=== PATIENT | male | born 1945 | race Caucasian/White ===

== ENCOUNTER 2017-07-08 07:02 | Day surgery (SDC) | payer OTHER ==
[~2017-07-08] VITALS: Ht 170.2 cm; Wt 60.8 kg
[~2017-07-08 07:02] MED LIST: CENTRUM SILVER1 EAC2 PO; CHOL10002 PO; GABA300 PO; OXYC5 PO; Prilosec10 M1 PO; ZESTORETIC 20-121 EA PO
== END 2017-07-08 22:50 | disposition home or self-care (01) ==
LOC: ORSCMMR 07:02 → ORD 08:45 → ORSCMMR 22:50
PROVIDERS: Surgery
PROC: B5161ZA Fluoroscopy of Right Subclavian Vein using Low Osmolar Contrast, Guidance (ICD-10-PCS; principal; 2017-07-08 10:15)
PROC: 05H533Z Insertion of Infusion Device into Right Subclavian Vein, Percutaneous Approach (ICD-10-PCS; principal; 2017-07-08 10:15)
DX: C64.2 Malignant neoplasm of left kidney, except renal pelvis (principal); I10 Essential (primary) hypertension; Z79.899 Other long term (current) drug therapy; F17.210 Nicotine dependence, cigarettes, uncomplicated
CPT/HCPCS: 77001; C1788; J0690; J1642; J2250; J3010; J7120

== ENCOUNTER 2017-10-22 00:15 | Day surgery (SDC) | payer OTHER ==
[~2017-10-22] VITALS: Ht 168.9 cm; Wt 61.2 kg
[2017-10-22] MEDS ORDERED: LOPE2C PO (08:31)
[2017-10-22] MEDS ORDERED: Prinivil10 MG PO (08:32)
[2017-10-22] MEDS ORDERED: OPDIVO240 MG/24 IV (08:33)
[2017-10-22] MEDS ORDERED: Prilosec Otc20 MG PO (08:34)
[2017-10-22] MEDS ORDERED: VANCO 1 GR1 GM/250 M IV (08:35)
== END 2017-10-22 09:20 | disposition home or self-care (01) ==
LOC: ATC 00:15
DX: M86.9 Osteomyelitis, unspecified (principal); I12.9 Hypertensive chronic kidney disease with stage 1 through stage 4 chronic kidney disease, or unspecified chronic kidney disease; N18.3 Chronic kidney disease, stage 3 (moderate); J43.9 Emphysema, unspecified; F17.210 Nicotine dependence, cigarettes, uncomplicated
CPT/HCPCS: 82565; J1642; J3370; J7050

== ENCOUNTER 2017-10-23 00:04 | Day surgery (SDC) | payer OTHER ==
[~2017-10-23 00:04] MED LIST changes: +LOPE2C PO; +OPDIVO240 MG/24 IV; +Prilosec Otc20 MG PO; +Prinivil10 MG PO; +VANCO 1 GR1 GM/250 M IV
== END 2017-10-23 09:10 | disposition home or self-care (01) ==
LOC: ATC 00:04
DX: M86.9 Osteomyelitis, unspecified (principal); I12.9 Hypertensive chronic kidney disease with stage 1 through stage 4 chronic kidney disease, or unspecified chronic kidney disease; N18.3 Chronic kidney disease, stage 3 (moderate); F17.210 Nicotine dependence, cigarettes, uncomplicated
CPT/HCPCS: 96365; J1642; J3370

== ENCOUNTER 2017-10-24 00:02 | Day surgery (SDC) | payer OTHER ==
[~2017-10-24] VITALS: Ht 168.9 cm; Wt 60.5 kg
[2017-10-24 08:47] LABS: Creatinine, Blood 1.16 mg/dL (0.60-1.20); Vancomycin, Trough 9.1 ug/mL (5.0-10.0)
== END 2017-10-24 10:37 | disposition home or self-care (01) ==
LOC: ATC 00:02
PROVIDERS: Family Medicine
DX: M86.9 Osteomyelitis, unspecified (principal); I12.9 Hypertensive chronic kidney disease with stage 1 through stage 4 chronic kidney disease, or unspecified chronic kidney disease; N18.3 Chronic kidney disease, stage 3 (moderate)
CPT/HCPCS: 80202; 82565; J1642; J2997; J3370

== ENCOUNTER 2017-10-27 00:17 | Day surgery (SDC) | payer OTHER ==
[2017-10-27 08:08] LABS: Creatinine, Blood 1.11 mg/dL (0.60-1.20); Vancomycin, Trough 15.6 ug/mL (5.0-10.0)
== END 2017-10-27 10:00 | disposition home or self-care (01) ==
LOC: ATC 00:17
PROVIDERS: Family Medicine
DX: M86.9 Osteomyelitis, unspecified (principal); I12.9 Hypertensive chronic kidney disease with stage 1 through stage 4 chronic kidney disease, or unspecified chronic kidney disease; N18.3 Chronic kidney disease, stage 3 (moderate)
CPT/HCPCS: 80202; 82565; 96365; J1642; J3370

== ENCOUNTER 2017-10-28 00:37 | Day surgery (SDC) | payer OTHER | END 2017-10-28 09:32 | disposition home or self-care (01) | LOC: ATC 00:37 | DX: M86.9 Osteomyelitis, unspecified (principal); I12.9 Hypertensive chronic kidney disease with stage 1 through stage 4 chronic kidney disease, or unspecified chronic kidney disease; N18.3 Chronic kidney disease, stage 3 (moderate) | CPT/HCPCS: 96365; J1642; J3370 ==

== ENCOUNTER 2017-11-15 07:10 | Day surgery (SDC) | payer OTHER | END 2017-11-15 17:43 | disposition home or self-care (01) | LOC: ATC 07:10 | DX: M86.9 Osteomyelitis, unspecified (principal); I12.9 Hypertensive chronic kidney disease with stage 1 through stage 4 chronic kidney disease, or unspecified chronic kidney disease; N18.3 Chronic kidney disease, stage 3 (moderate); F17.210 Nicotine dependence, cigarettes, uncomplicated | CPT/HCPCS: 96365; J1642; J3370; J7050 ==

== ENCOUNTER 2017-11-18 00:48 | Day surgery (SDC) | payer OTHER | END 2017-11-18 09:15 | disposition home or self-care (01) | LOC: ATC 00:48 | DX: M86.9 Osteomyelitis, unspecified (principal); I12.9 Hypertensive chronic kidney disease with stage 1 through stage 4 chronic kidney disease, or unspecified chronic kidney disease; N18.3 Chronic kidney disease, stage 3 (moderate) | CPT/HCPCS: 96365; J1642; J3370 ==

== ENCOUNTER 2017-11-20 07:38 | Day surgery (SDC) | payer OTHER ==
[2017-11-20 08:39] LABS: Creatinine, Blood 1.16 mg/dL (0.60-1.20); Vancomycin, Trough 15.1 ug/mL (5.0-10.0)
== END 2017-11-20 10:30 | disposition home or self-care (01) ==
LOC: ATC 07:38
PROVIDERS: Internal Medicine Hematology & Oncology
DX: M86.9 Osteomyelitis, unspecified (principal); I12.9 Hypertensive chronic kidney disease with stage 1 through stage 4 chronic kidney disease, or unspecified chronic kidney disease; N18.3 Chronic kidney disease, stage 3 (moderate); F17.210 Nicotine dependence, cigarettes, uncomplicated
CPT/HCPCS: 36415; 80202; 82565; 96365; 96366; J1642; J3370

== ENCOUNTER 2017-11-22 07:24 | Day surgery (SDC) | payer OTHER | END 2017-11-22 09:06 | disposition home or self-care (01) | LOC: ATC 07:24 | DX: M86.9 Osteomyelitis, unspecified (principal); I12.9 Hypertensive chronic kidney disease with stage 1 through stage 4 chronic kidney disease, or unspecified chronic kidney disease; N18.3 Chronic kidney disease, stage 3 (moderate); F17.210 Nicotine dependence, cigarettes, uncomplicated | CPT/HCPCS: J1642; J3370 ==

== ENCOUNTER 2017-11-23 07:26 | Day surgery (SDC) | payer OTHER | END 2017-11-23 08:53 | disposition home or self-care (01) | LOC: ATC 07:26 | DX: M86.9 Osteomyelitis, unspecified (principal); I12.9 Hypertensive chronic kidney disease with stage 1 through stage 4 chronic kidney disease, or unspecified chronic kidney disease; N18.3 Chronic kidney disease, stage 3 (moderate); F17.210 Nicotine dependence, cigarettes, uncomplicated | CPT/HCPCS: J1642; J3370 ==

== ENCOUNTER 2018-07-17 10:18 | Day surgery (SDC) | payer OTHER ==
[~2018-07-17] VITALS: Ht 170.2 cm; Wt 49.5 kg
[~2018-07-17 10:18] MED LIST changes: +AFINITOR5 MG PO; +AMLO5 PO; +Augmentin 875-1 EACH PO; +Ferus150 MG PO; +LENVIMA PO; +[UNRECOGNIZED DRUG - OTHER]
--- NOTE | 2018-07-17 10:57 | NUR ---
Ambulatory in Day Surgery Surgical site prepped with 2% Chlorhexidine cloth wipe. Patient confirms NPO status and agrees with scheduled surgery. Patient States Post-Procedure ride home has been arranged.
--- NOTE | 2018-07-17 11:40 | NUR ---
PATIENT GAVE PERMISSION FOR ME TO CARE FOR HIM TODAY 07/17/18
--- NOTE | 2018-07-17 13:50 | NUR ---
BRIGHT RED DRAINAGE TO DRESSING ON ABD. PT AWAKE AND PO FLUIDS PROVIDED. S/O AT BEDSIDE.
--- NOTE | 2018-07-17 14:10 | NUR ---
PT AMB TO BATHROOM WITH STAND BY ASSISTANCE. PTS S/O ASSISTED PT IN BATHROON AND THNE THEY AMB BACK TO BED. DRESSING TO ABD CHANGED AND DISCHARGE INSTRUCTIONS REVIEWED WITH PT AND S/O.
--- NOTE | 2018-07-17 14:38 | NUR ---
DRESSING DRY AND INTACT. Patient States Post-Procedure ride home has been arranged. Discharged via wheelchair to private car for ride home.
== END 2018-07-17 23:51 | disposition home or self-care (01) ==
LOC: ORSCMMR 10:18 → ORD 12:00 → ORSCMMR 23:51
PROVIDERS: Surgery
PROC: 0DH63UZ Insertion of Feeding Device into Stomach, Percutaneous Approach (ICD-10-PCS; principal; 2018-07-17 12:00)
DX: R63.4 Abnormal weight loss (principal); C64.2 Malignant neoplasm of left kidney, except renal pelvis; C77.1 Secondary and unspecified malignant neoplasm of intrathoracic lymph nodes; C79.70 Secondary malignant neoplasm of unspecified adrenal gland; M87.88 Other osteonecrosis, other site; M27.2 Inflammatory conditions of jaws; N18.3 Chronic kidney disease, stage 3 (moderate); Z79.899 Other long term (current) drug therapy
CPT/HCPCS: C1769; J0690; J2250; J2704; J7120

== ENCOUNTER → 2018-10-03 | Outpatient (CLI) | payer OTHER ==
[2018-10-03 12:04] LABS: Protein, Urine Quantitative 39.7 mg/dL (0.0-11.9)
[2018-10-03 12:07] LABS: Microalbumin, Urine Quant. 29.7 mg/L (0.000-20.000)
== END | disposition home or self-care (01) ==
LOC: LAB 05:30 → LAB SHORT 05:30
PROVIDERS: Internal Medicine Nephrology
DX: N18.3 Chronic kidney disease, stage 3 (moderate) (principal); D63.1 Anemia in chronic kidney disease; R73.09 Other abnormal glucose; R80.9 Proteinuria, unspecified
CPT/HCPCS: 81050; 82043; 82570; 84156

== ENCOUNTER → 2018-12-18 | Outpatient (CLI) | payer OTHER ==
[2018-12-24 11:07] LABS: M-SPIKE, % Not Observed % (Not Observed)
== END | disposition home or self-care (01) ==
LOC: LAB SHORT 06:00 → LAB 06:00
PROVIDERS: Internal Medicine Nephrology
DX: E55.9 Vitamin D deficiency, unspecified (principal); R94.6 Abnormal results of thyroid function studies; R94.5 Abnormal results of liver function studies; R76.9 Abnormal immunological finding in serum, unspecified; E78.00 Pure hypercholesterolemia, unspecified; N25.81 Secondary hyperparathyroidism of renal origin; R80.9 Proteinuria, unspecified; D63.1 Anemia in chronic kidney disease; N18.2 Chronic kidney disease, stage 2 (mild)
CPT/HCPCS: 81050; 84166; 86335

== ENCOUNTER 2019-04-12 08:28 | Day surgery (SDC) | payer OTHER | END 2019-04-12 22:44 | disposition home or self-care (01) | LOC: WOUND 08:28 | DX: L97.828 Non-pressure chronic ulcer of other part of left lower leg with other specified severity (principal); I12.9 Hypertensive chronic kidney disease with stage 1 through stage 4 chronic kidney disease, or unspecified chronic kidney disease; N18.3 Chronic kidney disease, stage 3 (moderate); C64.9 Malignant neoplasm of unspecified kidney, except renal pelvis; F17.210 Nicotine dependence, cigarettes, uncomplicated; Z79.899 Other long term (current) drug therapy | CPT/HCPCS: G0463 ==

== ENCOUNTER 2019-04-20 00:12 | Day surgery (SDC) | payer OTHER | END 2019-04-20 23:03 | disposition home or self-care (01) | LOC: WOUND 00:12 | DX: T81.89XA Other complications of procedures, not elsewhere classified, initial encounter (principal); I96 Gangrene, not elsewhere classified; L97.824 Non-pressure chronic ulcer of other part of left lower leg with necrosis of bone; I12.0 Hypertensive chronic kidney disease with stage 5 chronic kidney disease or end stage renal disease; N18.6 End stage renal disease; D63.1 Anemia in chronic kidney disease; F17.200 Nicotine dependence, unspecified, uncomplicated; C64.9 Malignant neoplasm of unspecified kidney, except renal pelvis; C79.9 Secondary malignant neoplasm of unspecified site; L97.828 Non-pressure chronic ulcer of other part of left lower leg with other specified severity; K74.60 Unspecified cirrhosis of liver; M27.2 Inflammatory conditions of jaws; Z79.899 Other long term (current) drug therapy; Y83.8 Other surgical procedures as the cause of abnormal reaction of the patient, or of later complication, without mention of misadventure at the time of the procedure ==

== ENCOUNTER 2019-04-27 00:15 | Day surgery (SDC) | payer OTHER | END 2019-04-27 22:48 | disposition home or self-care (01) | LOC: WOUND 00:15 | DX: T81.89XA Other complications of procedures, not elsewhere classified, initial encounter (principal); I96 Gangrene, not elsewhere classified; L97.822 Non-pressure chronic ulcer of other part of left lower leg with fat layer exposed; I12.0 Hypertensive chronic kidney disease with stage 5 chronic kidney disease or end stage renal disease; N18.6 End stage renal disease; D63.1 Anemia in chronic kidney disease; K74.60 Unspecified cirrhosis of liver; C64.9 Malignant neoplasm of unspecified kidney, except renal pelvis; C79.9 Secondary malignant neoplasm of unspecified site; F17.210 Nicotine dependence, cigarettes, uncomplicated; M27.2 Inflammatory conditions of jaws; Z79.899 Other long term (current) drug therapy; Y83.8 Other surgical procedures as the cause of abnormal reaction of the patient, or of later complication, without mention of misadventure at the time of the procedure ==

== ENCOUNTER 2019-04-29 00:16 | Day surgery (SDC) | payer OTHER ==
[2019-04-29 10:45] LABS: BASOPHILS ABSOLUTE AUTO 0.03 K/mm3 (0.00-0.23); BASOPHILS PERCENT AUTO 1 % (0-2); EOSINOPHILS ABSOLUTE AUTO 0.16 K/mm3 (0.00-0.68); EOSINOPHILS PERCENT AUTO 3 % (0-6); Hematocrit 37.9 % (37.0-53.0); Hemoglobin 11.7 g/dL (13.5-17.5); IMMATURE GRAN ABSOLUTE AUTO 0.01 K/mm3 (0.00-0.10); IMMATURE GRAN PERCENT AUTO 0 % (0-1); LYMPHOCYTES ABSOLUTE AUTO 1.62 K/mm3 (0.84-5.20); LYMPHOCYTES PERCENT AUTO 30 % (21-46); MONOCYTES ABSOLUTE AUTO 0.51 K/mm3 (0.16-1.47); MONOCYTES PERCENT AUTO 10 % (4-13); Mean Corpuscular HGB 30.4 pg (26.0-34.0); Mean Corpuscular HGB Conc 30.9 g/dL (31.5-36.5); Mean Corpuscular Volume 98 fL (80-100); Mean Platelet Volume 9.8 fL (9.1-12.4); NEUTROPHILS ABSOLUTE AUTO 3.05 K/mm3 (1.96-9.15); NEUTROPHILS PERCENT AUTO 57 % (41-73); Platelet Count 115 K/mm3 (150-400); RDW Coefficient Variation 13.9 % (11.7-14.2); RDW Standard Deviation 50.2 fL (35.1-46.3); Red Blood Cell Count 3.85 M/mm3 (4.30-5.90); White Blood Cell Count 5.38 K/mm3 (4.00-11.30)
[2019-04-29 11:23] LABS: Alanine Aminotransfer (ALT/SGP 21 U/L (12-78); Albumin, Blood 3.3 g/dL (3.4-5.0); Albumin/Globulin Ratio 0.8 (0.8-1.8); Alk Phos 151 U/L (50-136); Anion Gap 3 mmol/L (6-16); Aspartate Aminotrans (AST/SGOT 34 U/L (12-37); Bilirubin, Total 0.4 mg/dL (0.1-1.0); Blood Urea Nitrogen 19 mg/dL (8-24); Bun/Creatinine Ratio 17.6 (12.0-20.0); CO2, Blood 30 mmol/L (21-32); Calcium, Blood 9.4 mg/dL (8.5-10.1); Chloride, Blood 104 mmol/L (98-108); Creatinine, Blood 1.08 mg/dL (0.60-1.20); Globulin, Blood 4.4 g/dL (2.2-4.0); Glomerular Filtration Rate >60 (60-); Glucose, Blood 85 mg/dL (70-99); Potassium, Blood 3.9 mmol/L (3.5-5.5); Sodium, Blood 137 mmol/L (136-145); Total Protein, Blood 7.7 g/dL (6.4-8.2)
== END 2019-04-29 23:05 | disposition home or self-care (01) ==
LOC: WOUND 00:16
PROVIDERS: Internal Medicine Hematology & Oncology
DX: L97.828 Non-pressure chronic ulcer of other part of left lower leg with other specified severity (principal); I73.9 Peripheral vascular disease, unspecified; I12.9 Hypertensive chronic kidney disease with stage 1 through stage 4 chronic kidney disease, or unspecified chronic kidney disease; N18.3 Chronic kidney disease, stage 3 (moderate); C64.9 Malignant neoplasm of unspecified kidney, except renal pelvis; C79.9 Secondary malignant neoplasm of unspecified site; M27.2 Inflammatory conditions of jaws; F17.210 Nicotine dependence, cigarettes, uncomplicated; Z79.899 Other long term (current) drug therapy
CPT/HCPCS: 36415; 80053; 85025

== ENCOUNTER 2019-05-04 00:11 | Day surgery (SDC) | payer OTHER | END 2019-05-04 23:02 | disposition home or self-care (01) | LOC: WOUND 00:11 | DX: T81.89XA Other complications of procedures, not elsewhere classified, initial encounter (principal); L97.825 Non-pressure chronic ulcer of other part of left lower leg with muscle involvement without evidence of necrosis; I73.9 Peripheral vascular disease, unspecified; I12.9 Hypertensive chronic kidney disease with stage 1 through stage 4 chronic kidney disease, or unspecified chronic kidney disease; N18.3 Chronic kidney disease, stage 3 (moderate); C64.9 Malignant neoplasm of unspecified kidney, except renal pelvis; F17.210 Nicotine dependence, cigarettes, uncomplicated ==

== ENCOUNTER 2019-05-12 00:20 | Day surgery (SDC) | payer OTHER | END 2019-05-12 23:12 | disposition home or self-care (01) | LOC: WOUND 00:20 | DX: L97.828 Non-pressure chronic ulcer of other part of left lower leg with other specified severity (principal); I73.9 Peripheral vascular disease, unspecified; N18.3 Chronic kidney disease, stage 3 (moderate); F17.200 Nicotine dependence, unspecified, uncomplicated; Z79.899 Other long term (current) drug therapy ==

== ENCOUNTER 2019-05-18 00:11 | Day surgery (SDC) | payer OTHER | END 2019-05-18 23:02 | disposition home or self-care (01) | LOC: WOUND 00:11 | DX: L97.828 Non-pressure chronic ulcer of other part of left lower leg with other specified severity (principal); I73.9 Peripheral vascular disease, unspecified ==

== ENCOUNTER → 2019-05-25 | Day surgery (SDC) | payer OTHER | LOC: WOUND 00:14 | DX: L97.825 Non-pressure chronic ulcer of other part of left lower leg with muscle involvement without evidence of necrosis (principal); I12.9 Hypertensive chronic kidney disease with stage 1 through stage 4 chronic kidney disease, or unspecified chronic kidney disease; N18.3 Chronic kidney disease, stage 3 (moderate); I73.9 Peripheral vascular disease, unspecified; R60.0 Localized edema; F17.200 Nicotine dependence, unspecified, uncomplicated; Z79.899 Other long term (current) drug therapy ==

== ENCOUNTER 2019-06-01 02:04 | Day surgery (SDC) | payer OTHER | END 2019-06-01 03:33 | disposition home or self-care (01) | LOC: WOUND 02:04 | DX: L97.828 Non-pressure chronic ulcer of other part of left lower leg with other specified severity (principal); I73.9 Peripheral vascular disease, unspecified; I12.9 Hypertensive chronic kidney disease with stage 1 through stage 4 chronic kidney disease, or unspecified chronic kidney disease; N18.3 Chronic kidney disease, stage 3 (moderate) ==

== ENCOUNTER 2019-06-08 00:42 | Day surgery (SDC) | payer OTHER | END 2019-06-08 12:00 | disposition home or self-care (01) | LOC: WOUND 00:42 | DX: L97.828 Non-pressure chronic ulcer of other part of left lower leg with other specified severity (principal); I73.9 Peripheral vascular disease, unspecified; F17.200 Nicotine dependence, unspecified, uncomplicated; N18.3 Chronic kidney disease, stage 3 (moderate); Z79.899 Other long term (current) drug therapy ==

== ENCOUNTER 2019-06-15 00:13 | Day surgery (SDC) | payer OTHER | END 2019-06-15 22:53 | disposition home or self-care (01) | LOC: WOUND 00:13 | DX: T81.89XA Other complications of procedures, not elsewhere classified, initial encounter (principal); L97.828 Non-pressure chronic ulcer of other part of left lower leg with other specified severity; I12.9 Hypertensive chronic kidney disease with stage 1 through stage 4 chronic kidney disease, or unspecified chronic kidney disease; N18.3 Chronic kidney disease, stage 3 (moderate); I73.9 Peripheral vascular disease, unspecified; C64.9 Malignant neoplasm of unspecified kidney, except renal pelvis; F17.210 Nicotine dependence, cigarettes, uncomplicated; Y83.8 Other surgical procedures as the cause of abnormal reaction of the patient, or of later complication, without mention of misadventure at the time of the procedure ==

== ENCOUNTER 2019-06-23 00:14 | Day surgery (SDC) | payer OTHER | END 2019-06-23 23:16 | disposition home or self-care (01) | LOC: WOUND 00:14 | DX: L97.828 Non-pressure chronic ulcer of other part of left lower leg with other specified severity (principal); I73.9 Peripheral vascular disease, unspecified; R60.0 Localized edema; N18.3 Chronic kidney disease, stage 3 (moderate); F17.200 Nicotine dependence, unspecified, uncomplicated ==

== ENCOUNTER 2019-06-29 00:18 | Day surgery (SDC) | payer OTHER | END 2019-06-29 22:50 | disposition home or self-care (01) | LOC: WOUND 00:18 | DX: L97.828 Non-pressure chronic ulcer of other part of left lower leg with other specified severity (principal); I73.9 Peripheral vascular disease, unspecified; N18.3 Chronic kidney disease, stage 3 (moderate); F17.200 Nicotine dependence, unspecified, uncomplicated ==

== ENCOUNTER 2019-07-12 00:10 | Day surgery (SDC) | payer OTHER | END 2019-07-12 23:10 | disposition home or self-care (01) | LOC: WOUND 00:10 | DX: T81.89XA Other complications of procedures, not elsewhere classified, initial encounter (principal); L97.828 Non-pressure chronic ulcer of other part of left lower leg with other specified severity; I73.9 Peripheral vascular disease, unspecified; I12.0 Hypertensive chronic kidney disease with stage 5 chronic kidney disease or end stage renal disease; N18.6 End stage renal disease; F17.200 Nicotine dependence, unspecified, uncomplicated; Y83.8 Other surgical procedures as the cause of abnormal reaction of the patient, or of later complication, without mention of misadventure at the time of the procedure ==

== ENCOUNTER 2019-07-27 00:21 | Day surgery (SDC) | payer OTHER | END 2019-07-27 22:55 | disposition home or self-care (01) | LOC: WOUND 00:21 | DX: L97.828 Non-pressure chronic ulcer of other part of left lower leg with other specified severity (principal); I73.9 Peripheral vascular disease, unspecified; I12.9 Hypertensive chronic kidney disease with stage 1 through stage 4 chronic kidney disease, or unspecified chronic kidney disease; N18.3 Chronic kidney disease, stage 3 (moderate); F17.210 Nicotine dependence, cigarettes, uncomplicated ==

== ENCOUNTER 2019-08-03 00:28 | Day surgery (SDC) | payer OTHER | END 2019-08-03 22:39 | disposition home or self-care (01) | LOC: WOUND 00:28 | DX: T81.89XA Other complications of procedures, not elsewhere classified, initial encounter (principal); L97.828 Non-pressure chronic ulcer of other part of left lower leg with other specified severity; R60.0 Localized edema; I73.9 Peripheral vascular disease, unspecified; I12.9 Hypertensive chronic kidney disease with stage 1 through stage 4 chronic kidney disease, or unspecified chronic kidney disease; N18.3 Chronic kidney disease, stage 3 (moderate); C64.9 Malignant neoplasm of unspecified kidney, except renal pelvis; F17.200 Nicotine dependence, unspecified, uncomplicated; Y83.8 Other surgical procedures as the cause of abnormal reaction of the patient, or of later complication, without mention of misadventure at the time of the procedure ==

== ENCOUNTER 2019-08-10 00:11 | Day surgery (SDC) | payer OTHER ==
[~2019-08-10 00:11] MED LIST changes: -AFINITOR5 MG PO; -AMLODIPINE BES2.5 MG PO; -Augmentin 875-1 EACH PO; -Culturelle1 CAP PO; -Kaopectate240 MG; -LENVIMA PO; -LISI5 PO; -MIRALAX17 GM PO; -OXYC5 PO; -PANT40 PO; -Prilosec Otc20 MG PO
[2019-08-10] MEDS ORDERED: AMLODIPINE BES2.5 MG PO (22:51)
[2019-08-10] MEDS ORDERED: LISI5 PO (22:51)
[2019-08-10] MEDS ORDERED: Augmentin 875-1 EACH PO (23:00)
[2019-08-10] MEDS ORDERED: OXYC5 PO (23:01)
[2019-08-10] MEDS ORDERED: Prilosec Otc20 MG PO (23:02)
[2019-08-10] MEDS ORDERED: LENVIMA PO (23:04)
[2019-08-10] MEDS ORDERED: AFINITOR5 MG PO (23:04)
[2019-08-11] MEDS ORDERED: Culturelle1 CAP PO (00:45)
[2019-08-11] MEDS ORDERED: LOPE2C PO (00:45)
[2019-08-11] MEDS ORDERED: Kaopectate240 MG (00:47)
[2019-08-13] MEDS ORDERED: MIRALAX17 GM PO (16:01)
[2019-08-13] MEDS ORDERED: PANT40 PO (16:23)
== END 2019-08-10 22:38 | disposition home or self-care (01) ==
LOC: WOUND
DX: L97.828 Non-pressure chronic ulcer of other part of left lower leg with other specified severity (principal); I73.9 Peripheral vascular disease, unspecified; I12.9 Hypertensive chronic kidney disease with stage 1 through stage 4 chronic kidney disease, or unspecified chronic kidney disease; N18.3 Chronic kidney disease, stage 3 (moderate); Z87.891 Personal history of nicotine dependence; Z79.899 Other long term (current) drug therapy
CPT/HCPCS: G0463

== ENCOUNTER 2019-08-10 21:36 | Inpatient (IN) | payer OTHER ==
[~2019-08-10] VITALS: Ht 170.2 cm; Wt 43.8 kg
[2019-08-10 21:59] LABS: BASOPHILS ABSOLUTE AUTO 0.01 K/mm3 (0.00-0.23); BASOPHILS PERCENT AUTO 0 % (0-2); EOSINOPHILS ABSOLUTE AUTO 0.11 K/mm3 (0.00-0.68); EOSINOPHILS PERCENT AUTO 2 % (0-6); Hematocrit 35.5 % (37.0-53.0); Hemoglobin 11.4 g/dL (13.5-17.5); IMMATURE GRAN ABSOLUTE AUTO 0.01 K/mm3 (0.00-0.10); IMMATURE GRAN PERCENT AUTO 0 % (0-1); LYMPHOCYTES ABSOLUTE AUTO 1.92 K/mm3 (0.84-5.20); LYMPHOCYTES PERCENT AUTO 32 % (21-46); MONOCYTES PERCENT AUTO 14 % (4-13); Mean Corpuscular HGB 30.8 pg (26.0-34.0); Mean Corpuscular HGB Conc 32.1 g/dL (31.5-36.5); Mean Corpuscular Volume 96 fL (80-100); Mean Platelet Volume 10.4 fL (9.1-12.4); NEUTROPHILS ABSOLUTE AUTO 3.08 K/mm3 (1.96-9.15); NEUTROPHILS PERCENT AUTO 52 % (41-73); Platelet Count 137 K/mm3 (150-400); RDW Coefficient Variation 14.2 % (11.7-14.2); White Blood Cell Count 5.93 K/mm3 (4.00-11.30)
[2019-08-10 22:22] LABS: Lactate Dehydrogenase (Ld),Bld 175 U/L (100-240); Magnesium, Blood 2.5 mg/dL (1.6-2.4); Troponin I <0.015 ng/mL (0.000-0.040); Uric Acid, Blood 5.7 mg/dL (3.5-7.2)
[2019-08-10 22:24] LABS: Alanine Aminotransfer (ALT/SGP 22 U/L (12-78); Albumin, Blood 3.2 g/dL (3.4-5.0); Albumin/Globulin Ratio 0.7 (0.8-1.8); Alk Phos 139 U/L (50-136); Anion Gap 8 mmol/L (6-16); Aspartate Aminotrans (AST/SGOT 23 U/L (12-37); Bilirubin, Total 0.3 mg/dL (0.1-1.0); Blood Urea Nitrogen 74 mg/dL (8-24); Bun/Creatinine Ratio 22.4 (12.0-20.0); CO2, Blood 16 mmol/L (21-32); Calcium, Blood 9.5 mg/dL (8.5-10.1); Chloride, Blood 113 mmol/L (98-108); Creatinine, Blood 3.31 mg/dL (0.60-1.20); Globulin, Blood 4.6 g/dL (2.2-4.0); Glomerular Filtration Rate 19 (60-); Glucose, Blood 120 mg/dL (70-99); Phosphorus, Blood 6.8 mg/dL (2.5-4.9); Potassium, Blood 6.1 mmol/L (3.5-5.5); Sodium, Blood 137 mmol/L (136-145); Total Protein, Blood 7.8 g/dL (6.4-8.2)
[2019-08-10] MEDS ORDERED: AMLODIPINE BES2.5 MG PO (22:51)
[2019-08-10] MEDS ORDERED: LISI5 PO ×2 (22:51)
[2019-08-10 22:55] LABS: Creatine Kinase MB 1.5 ng/mL (0.0-3.6); Creatine Kinase MB Index 3.5 (0.0-4.0)
[2019-08-10] MEDS ORDERED: Augmentin 875-1 EACH PO (23:00)
[2019-08-10] MEDS ORDERED: OXYC5 PO ×2 (23:01)
[2019-08-10] MEDS ORDERED: Prilosec Otc20 MG PO ×2 (23:02)
[2019-08-10] MEDS ORDERED: AFINITOR5 MG PO ×2 (23:04)
[2019-08-10] MEDS ORDERED: LENVIMA PO ×2 (23:04)
[2019-08-11] MEDS ORDERED: LOPE2C PO ×2 (00:45)
[2019-08-11] MEDS ORDERED: Culturelle1 CAP PO ×2 (00:45)
[2019-08-11] MEDS ORDERED: Kaopectate240 MG ×2 (00:47)
--- NOTE | 2019-08-11 01:00 | NUR ---
PT TO ICU 12 FROM ED AT 0040. PT ABLE TO STAND AND TRANSFER TO ICU BED WITH STANDBY ASSIST. PT REPORTS BILATERAL LOWER EXTREMETY WEAKNESS PROGRESSING OVER THE LAST 3 MONTHS. PT REPORTS DIARRHEA FOR 3 MONTHS DESPITE TAKING DAILY ANTI-DIARRHEA MEDICATIONS. PT REPORTEDLY LOST OVER 20 LBS IN THE PAST 3 MONTHS D/T DECREASED APPETITE. PT HAS HYPERACTIVE BOWEL TONES IN ALL 4 QUADRANTS. GI PANEL/GUAIC TEST ORDERED R/O GI BLEED AND C-DIFF. PT PLACED IN CONTACT PRECAUTIONS UNTIL C-DIF RESULTS RECEIVED. PT HAS HX OF METASTATIC RENAL CANCER (BONE, KIDNEYS, LUNGS) PT'S SATS 100% ON RA, LUNG SOUNDS DIM T/O. PT HAS NO TEETH AND RECENTLY UNDERWENT BONE GRAFT FROM LEFT LOWER LEG TO MANDIBLE. PT REPORTS NO DIFFICULTY SWALLOWING AND IS ABLE TO "GUM" MOST FOODS. ENCOURAGED PT TO SPEAK WITH STAFF IF HE NEEDS DIFFERENT MEAL ACCOMODATIONS. PER PT HE HAS NOT URINATED SINCE TUESDAY 08/08, PER DR. TRIVEDI PT URINATED SMALL AMOUNT 08/09. BLADDER SCAN SHOWS URINE OF 176. PT REPORTS THAT HE DRINKS 3-4 16-OZ GLASSES OF WATER/DAILY. 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 PT'S SKIN IS ECCHYMOTIC WITH SCATTERED SCABS. LARGE SCAB TO TOP OF HEAD, PT REPORTS THAT 5 MONTHS AGO HE "HIT HEAD WHILE FEEDING DOG" AND THAT IT HAS BEEN SLOW TO HEAL. LARGE OPEN WOUND TO LEFT LOWER LEG, PT REPORTS THIS WAS FROM "BONE GRAFT". MEPILEX WITH XEROFORM IN PLACE (SEE PICTS). PT REPORTEDLY HAS ORDERS FROM [facility] DOCTOR FOR DAILY DRESSING CHANGES FOR WHICH HE GOES TO THE [facility]. REDDENED COCCYX WITH OPEN SKIN TEAR/PRESSURE ULCER (SEE PICTS). PT REPORTS THAT HE HAS BEEN "PUTTING NEOSPORIN ON IT". PT CURRENTLY UNDER THE CARE OF DR. HAYDEN AND [facility]. PT TAKING 2 DAILY CHEMOTHERAPY MEDICATIONS. RIGHT UPPER CHEST POWER PORT ACCESSED IN ED. NS 100 ML/HR INFUSING. SEE FULL ADMISSION ASSESSMENT
[2019-08-11 03:34] LABS: BASOPHILS ABSOLUTE AUTO 0.02 K/mm3 (0.00-0.23); BASOPHILS PERCENT AUTO 0 % (0-2); EOSINOPHILS ABSOLUTE AUTO 0.15 K/mm3 (0.00-0.68); EOSINOPHILS PERCENT AUTO 3 % (0-6); Hematocrit 31.1 % (37.0-53.0); IMMATURE GRAN ABSOLUTE AUTO 0.01 K/mm3 (0.00-0.10); IMMATURE GRAN PERCENT AUTO 0 % (0-1); LYMPHOCYTES ABSOLUTE AUTO 0.95 K/mm3 (0.84-5.20); LYMPHOCYTES PERCENT AUTO 17 % (21-46); MONOCYTES ABSOLUTE AUTO 0.78 K/mm3 (0.16-1.47); MONOCYTES PERCENT AUTO 14 % (4-13); Mean Corpuscular HGB 30.9 pg (26.0-34.0); Mean Corpuscular HGB Conc 32.2 g/dL (31.5-36.5); Mean Corpuscular Volume 96 fL (80-100); Mean Platelet Volume 10.4 fL (9.1-12.4); NEUTROPHILS ABSOLUTE AUTO 3.86 K/mm3 (1.96-9.15); NEUTROPHILS PERCENT AUTO 67 % (41-73); Platelet Count 119 K/mm3 (150-400); Red Blood Cell Count 3.24 M/mm3 (4.30-5.90); White Blood Cell Count 5.77 K/mm3 (4.00-11.30)
[2019-08-11 03:48] LABS: Bun/Creatinine Ratio 23.5 (12.0-20.0); Calcium, Blood 9.2 mg/dL (8.5-10.1); Creatinine, Blood 2.94 mg/dL (0.60-1.20); Potassium, Blood 5.9 mmol/L (3.5-5.5)
--- NOTE | 2019-08-11 06:09 | NUR ---
SHIFT SUMMARY NO ACUTE CHANGES SINCE ADMISSION. PT HAS SLEPT WELL, DENIES NEEDS. PT OUT OF BED TO BEDSIDE COMMODE WITH 1-PERSON ASSIST WITH [address] REINA CALLED WITH MORNING LAB RESULTS, WILL BE IN TO SEE PATIENT THIS MORNING. WILL REPORT TO DAYSHIFT NURSE.
--- NOTE | 2019-08-11 06:41 | NUR ---
DR. REINA TO IN TO SEE PATIENT, ORDER TO D/C NS AND START D5W WITH 3 AMPS BICARB AT 75 ML/HR.
[2019-08-11 08:13] LABS: Source, Urine Clean Catch
[2019-08-11 08:21] LABS: Bilirubin, Urine Neg (Neg); Blood, Urine Neg (Neg); Glucose Qualitative, Urine Neg (Neg); Ketones, Urine Neg (Neg); Leukocyte Esterase, Urine Neg (Neg); Nitrite, Urine Neg (Neg); Protein, Urine 3+ (Neg); Urobilinogen, Urine NORM (Normal)
[2019-08-11 08:36] LABS: Appearance, Urine Clear (Clear); Color, Urine Yellow (P-Yellow)
[2019-08-11 08:38] LABS: Bacteria Rare /hpf; Red Blood Cells, Urine 0-2 /hpf (0-2); Squamous Epithelial Cells Rare /hpf (Few); White Blood Cells, Urine 0-2 /hpf (0-5)
--- NOTE | 2019-08-11 18:53 | NUR ---
SUMMARY Assumed care of pt at 0700. Bedside report received from Bulmaro SOLIS. Pt A&O x 4. On room air. SR per monitor. Pt up to chair for breakfast and remained in chair until after lunch. Pt used bedside commode three times but only had one bowel movement. Bowel movement loose and green. C-diff and guiac sample sent. Pt continent of bowel and bladder. Prefers to void urine into bedside commode. Pt tolerates in room activity well. Calls appropriately before getting out of bed. Dr Montano in to see pt. States plan for EGD tomorrow. Pt verbalizes understanding of diet restriction to ice chips and water at midnight and strict NPO in morning. No acute changes to shift assessment. WIll continue to closely montior until care handoff and bedside report with oncoming RN.
--- NOTE | 2019-08-11 19:00 | NUR ---
INITAL SHIFT ASSESSMENT PT IS IN BED SITTING UP ALERT AND ORIENTED. HE STATES HE HAS JAW PAIN AND WOULD LIKE TO HAVE HIS PAIN PILL WHEN ALLOWED. DENIES PAIN ANYWHERE ELSE AND STATES OVERALL HE JUST FEELS WEEK. REVIEWED CALL LIGHT WITH PT AND HE STATES HE WILL CALL BEFORE GETTING OOB FOR ANYTHING. VITALS ARE STABLE AT THIS TIME. ASSESSMENT IS OVERALL BENIGN. PT IS ON RA WITH NO SOB AT REST NOTED. IV FLUIDS RUNNING ORDERED SEE EMAR. FLUIDS ARE RUNNING INTO ACCESSED MEDIPORT. PT HAS HAD PAS STOCKING ON AND OFF T/O SHIFT. HE STATES HE WILL WEAR THEM WHEN HE IS READY FOR BED THIS EVENING. OVERALL PLESANT AND COOPERTIVE. WILL CON'T TO MONITOR PT T/O REMAINDER OF SHIFT. CALL LIGHT IN REACH AND BED IN LOW POSITION.
[2019-08-11 21:54] LABS: Adenovirus F 40/41 Not Detected (NOT DETECT); Astrovirus Not Detected (NOT DETECT); Campylobacter Sp Not Detected (NOT DETECT); Cryptosporidium Not Detected (NOT DETECT); Cyclospora Cayetanensis Not Detected (NOT DETECT); E. Coli O157 Not Detected (NOT DETECT); Entamoeba Histolytica Not Detected (NOT DETECT); Enteroaggregative E. coli-EAEC Not Detected (NOT DETECT); Enteropathogenic E. coli-EPEC Not Detected (NOT DETECT); Enterotoxigenic E. coli-ETEC Not Detected (NOT DETECT); Giardia Lamblia Not Detected (NOT DETECT); Norovirus GI/GII Not Detected (NOT DETECT); Plesiomonas Shigelloides Not Detected (NOT DETECT); Rotavirus A Not Detected (NOT DETECT); Salmonella Sp Not Detected (NOT DETECT); Shiga Toxin-prod E. coli-STEC Not Detected (NOT DETECT); Shigella/Enteroin E. coli-EIEC Not Detected (NOT DETECT); Vibrio Cholerae Not Detected (NOT DETECT); Vibrio Sp Not Detected (NOT DETECT); Yersinia Enterocolitica Not Detected (NOT DETECT)
[2019-08-11 21:55] LABS: Sapovirus Not Detected (NOT DETECT)
[2019-08-12 03:51] LABS: Hematocrit 27.7 % (37.0-53.0); Hemoglobin 9.1 g/dL (13.5-17.5)
[2019-08-12 04:10] LABS: Albumin, Blood 2.3 g/dL (3.4-5.0); Anion Gap 7 mmol/L (6-16); Blood Urea Nitrogen 54 mg/dL (8-24); Bun/Creatinine Ratio 22.2 (12.0-20.0); CO2, Blood 24 mmol/L (21-32); Calcium, Blood 8.2 mg/dL (8.5-10.1); Chloride, Blood 110 mmol/L (98-108); Creatinine, Blood 2.43 mg/dL (0.60-1.20); Glomerular Filtration Rate 28 (60-); Glucose, Blood 84 mg/dL (70-99); Phosphorus, Blood 4.5 mg/dL (2.5-4.9); Potassium, Blood 5.1 mmol/L (3.5-5.5); Sodium, Blood 141 mmol/L (136-145)
--- NOTE | 2019-08-12 05:45 | NUR ---
SHIFT SUMMARY PT CON'T TO BE STABLE WITH NO CHANGES FROM BASELINE. VITALS ARE STABLE. PT HAS NO COMPLAINTS THIS AM. HE CON'T TO BE ABLE TO STAND AND TRANSFER TO BSC WITH MINIMAL ASSISTANCE. LIQUID STOOL AND URINE INTO COMMODE WITH NO ISSUES. PT BACK IN BED ON THE PHONE RESTING. WILL CON'T TO MONITOR PT AND KEEP SAFE TILL REPORT TO ONCOMING RN. CALL LIGHT IN REACH AND BED IN LOW POSITION.
[2019-08-12 07:34] LABS: Stool Occult Blood Guaiac 1 Neg (Neg)
--- NOTE | 2019-08-12 09:00 | NUR ---
DR HAYDEN Called unit with regards to consultation. States this pt's acute conditions are not cancer related. States he will follow the pt's progress but will not be seeing the patient during this hospitalization.
--- NOTE | 2019-08-12 11:35 | NUR ---
PT IN ICU 12. History, Chart, Medications and Allergies reviewed before start of procedure. Lungs clear T/O to Auscultation. Patient confirms NPO status and agrees with scheduled surgery.
--- NOTE | 2019-08-12 14:37 | NUR ---
ICU SUMMARY Assumed care of pt at 0700. Bedside report received from Alie SOLIS. Pt A&O x 4. SpO2 90% or greater RA. SR per monitor. Pt verbalizes understanding of NPO and plan of care for remainder of day. Pt up to chair. Sat up in chair for about 3 hours before going back to bed, independently. Pt continent of bowel and urine. Pleasant and cooperative with care. EGD completed. Per Dr Montano, plans for colonoscopy tomorrow. Pt verbalizes understaning. Currently on clear liquid diet. Plans for pt to transfer to room 359 as pt is medical floor status without telemetry. Telephone report given to Fe SOLIS.
--- NOTE | 2019-08-12 15:30 | NUR ---
ARRIVES VIA W/C FROM ICU ABOUT 1520. ALERT, ORIENTED. LUNGS DIM TO CLEAR T/O. NO TELE. ON R.A. SPEAKS IN COMPLETE SENTENCES. AWARE OF COLONOSCOPY TOMORROW. ON CLEAR LIQUIDS. MEDIPORT RT C.W ASSESSED WITH NACL RUNNING AT 75ML/HR. AWARE OF NEED FOR GUIAC X 2 WITH HAT PLACED IN BATHROOM. HAS OWN MEDS IN BLACK BAG AND PLACED IN CHART DRAWER. DRINKING COFFEE. ORIENTED TO ROOM WITH OWN PHONE ON HADOOP APPLICATION DEVELOPER. DENIES PAIN AT THIS TIME. WCTM
--- NOTE | 2019-08-12 15:32 | NUR ---
TRANSFER Pt transferred to room 359 accompanied by Rosangela CASTILLO. Pt transferred to new room via wheelchair. Chart, medications, and belongings transferred with patient. LLE dressing changed by this RN.
--- NOTE | 2019-08-13 04:58 | NUR ---
INVOICING MACHINE OPERATOR SUMMARY PT AAOX4 AND PLEASANT. ONLY ABLE TO DRINK ROUGHLY 1300 ML OF INITIAL 2000 ML OF GOLYTELY BEFORE BED. PT STATED "IT'S MAKING ME NAUSEAS AND I CAN'T DRINK ANYMORE TONIGHT". PT TO START DRINKING NEXT 2000 ML AT 0600 TODAY. PT HAS HAD SEVERAL BM'S TONIGHT, VERY WATERY BUT STILL DARK IN COLOR AT THIS TIME. VSS, WILL CONTINUE TO MONITOR.
[2019-08-13 06:07] LABS: Hemoglobin 7.8 g/dL (13.5-17.5)
[2019-08-13 06:18] LABS: Albumin, Blood 2.3 g/dL (3.4-5.0); Anion Gap 8 mmol/L (6-16); Blood Urea Nitrogen 38 mg/dL (8-24); Bun/Creatinine Ratio 18.8 (12.0-20.0); CO2, Blood 20 mmol/L (21-32); Chloride, Blood 112 mmol/L (98-108); Creatinine, Blood 2.02 mg/dL (0.60-1.20); Glomerular Filtration Rate 34 (60-); Glucose, Blood 72 mg/dL (70-99); Magnesium, Blood 1.9 mg/dL (1.6-2.4); Phosphorus, Blood 3.1 mg/dL (2.5-4.9); Potassium, Blood 4.9 mmol/L (3.5-5.5); Sodium, Blood 140 mmol/L (136-145)
--- NOTE | 2019-08-13 11:00 | NUR ---
O.R. STAFF NOTIFIED STOOL LIQUID YELLOW. WILL BE HERE AROUND 1200 TO GET.
--- NOTE | 2019-08-13 12:29 | NUR ---
08/13/19 1229 Florentin Newsome History, Chart, Medications and Allergies reviewed before start of procedure.MONITOR INTACT WITH CONTINUOUS PULSE OXIMETRY AND INTERMITTENT BP.3-LEAD EKG REVIEWED WITH PHYSICIAN PRIOR TO START OF PROCEDURE.O2 VIA N/C INTACT THROUGHOUT SEDATION/PROCEDURE. Patient confirms NPO status and agrees with scheduled surgery.PATIENT DETERMINED TO BE ASA APPROPRIATE FOR PROPOFOL SEDATION PRIOR TO START OF PROCEDURE BY DR. COLLAZO.
[2019-08-13] MEDS ORDERED: MIRALAX17 GM PO ×2 (16:01)
[2019-08-13] MEDS ORDERED: PANT40 PO ×2 (16:23)
--- NOTE | 2019-08-13 16:46 | NUR ---
REVIEW D'C INSTRUCTIONS WITH PATIENT. AWARE HAS MEDS X 2 AT [facility]. AWARE HIS DOCTORS OFFICE WILL CALL FRIDAY TO SCHEDULE AN APPOINTMENT. REVIEW NEW MEDS. AWARE TO F/U W/. HAS F/U APPT WITH DR. HAYDEN NEXT WEEK. ANSWER ALL QUESTIONS. IN W/C TO POV
== END 2019-08-13 16:50 | disposition home or self-care (01) | DRG 682 ==
LOC: ER 21:36 → MEDS 23:54 → ICUW 23:54 → MEDS 08-12 15:20
PROVIDERS: Emergency Medicine; Internal Medicine Gastroenterology; Internal Medicine Nephrology; ADMIT Family Medicine
PROC: 0DB68ZX Excision of Stomach, Via Natural or Artificial Opening Endoscopic, Diagnostic (ICD-10-PCS; 2019-08-12)
PROC: 0DBA8ZX Excision of Jejunum, Via Natural or Artificial Opening Endoscopic, Diagnostic (ICD-10-PCS; 2019-08-12)
PROC: 0DB58ZX Excision of Esophagus, Via Natural or Artificial Opening Endoscopic, Diagnostic (ICD-10-PCS; 2019-08-12)
PROC: 0DB98ZX Excision of Duodenum, Via Natural or Artificial Opening Endoscopic, Diagnostic (ICD-10-PCS; principal; 2019-08-12 11:00)
PROC: 0DB78ZX Excision of Stomach, Pylorus, Via Natural or Artificial Opening Endoscopic, Diagnostic (ICD-10-PCS; 2019-08-12 11:00)
PROC: 0DBE8ZX Excision of Large Intestine, Via Natural or Artificial Opening Endoscopic, Diagnostic (ICD-10-PCS; 2019-08-13)
DX: N17.9 Acute kidney failure, unspecified (principal); K22.11 Ulcer of esophagus with bleeding; E43 Unspecified severe protein-calorie malnutrition; E87.2 Acidosis; C64.9 Malignant neoplasm of unspecified kidney, except renal pelvis; C78.02 Secondary malignant neoplasm of left lung; C78.01 Secondary malignant neoplasm of right lung; C79.51 Secondary malignant neoplasm of bone; Z68.1 Body mass index [BMI] 19.9 or less, adult; K63.5 Polyp of colon; K64.8 Other hemorrhoids; K57.30 Diverticulosis of large intestine without perforation or abscess without bleeding; E87.5 Hyperkalemia; E86.0 Dehydration; N18.9 Chronic kidney disease, unspecified; D63.1 Anemia in chronic kidney disease; K44.9 Diaphragmatic hernia without obstruction or gangrene; S81.802A Unspecified open wound, left lower leg, initial encounter; F17.210 Nicotine dependence, cigarettes, uncomplicated; I12.9 Hypertensive chronic kidney disease with stage 1 through stage 4 chronic kidney disease, or unspecified chronic kidney disease; E83.39 Other disorders of phosphorus metabolism; N25.81 Secondary hyperparathyroidism of renal origin; D69.59 Other secondary thrombocytopenia; Z79.899 Other long term (current) drug therapy; Z79.2 Long term (current) use of antibiotics; Z79.891 Long term (current) use of opiate analgesic
CPT/HCPCS: 0097U; 71045; 74150; 76770; 80048; 80053; 80069; 81001; 82272; 82374; 82550; 82553; 82947; 83615; 83735; 84100; 84132; 84484; 84550; 85014; 85018; 85025; 88305; 88342; 93005; 93010; 96361; 96374; 96375; 99285-25; A9270-GY; C9113; J0171; J0610; J0881; J1642; J1815; J2250; J2704; J7030; J7070; J7120

== ENCOUNTER → 2019-08-10 | Outpatient (CLI) | payer OTHER ==
[~2019-08-10] MED LIST changes: -AMLO5 PO; +AMLODIPINE BES2.5 MG PO; +Culturelle1 CAP PO; +Kaopectate240 MG; +LISI5 PO; +MIRALAX17 GM PO; +PANT40 PO
[2019-08-10 19:50] LABS: BASOPHILS ABSOLUTE AUTO 0.02 K/mm3 (0.00-0.23); BASOPHILS PERCENT AUTO 1 % (0-2); EOSINOPHILS ABSOLUTE AUTO 0.01 K/mm3 (0.00-0.68); EOSINOPHILS PERCENT AUTO 0 % (0-6); Hemoglobin 12.5 g/dL (13.5-17.5); IMMATURE GRAN ABSOLUTE AUTO 0.01 K/mm3 (0.00-0.10); IMMATURE GRAN PERCENT AUTO 0 % (0-1); LYMPHOCYTES ABSOLUTE AUTO 0.87 K/mm3 (0.84-5.20); LYMPHOCYTES PERCENT AUTO 21 % (21-46); MONOCYTES ABSOLUTE AUTO 0.41 K/mm3 (0.16-1.47); MONOCYTES PERCENT AUTO 10 % (4-13); Mean Corpuscular HGB 30.6 pg (26.0-34.0); Mean Corpuscular HGB Conc 31.3 g/dL (31.5-36.5); Mean Corpuscular Volume 98 fL (80-100); Mean Platelet Volume 11.7 fL (9.1-12.4); NEUTROPHILS ABSOLUTE AUTO 2.79 K/mm3 (1.96-9.15); NEUTROPHILS PERCENT AUTO 68 % (41-73); Platelet Count 151 K/mm3 (150-400); RDW Coefficient Variation 14.2 % (11.7-14.2); RDW Standard Deviation 51.3 fL (35.1-46.3); Red Blood Cell Count 4.08 M/mm3 (4.30-5.90); White Blood Cell Count 4.11 K/mm3 (4.00-11.30)
[2019-08-10 20:54] LABS: Albumin, Blood 3.5 g/dL (3.4-5.0); Albumin/Globulin Ratio 0.7 (0.8-1.8); Bilirubin, Total 0.4 mg/dL (0.1-1.0); Bun/Creatinine Ratio 22.2 (12.0-20.0); Calcium, Blood 10.3 mg/dL (8.5-10.1); Creatinine, Blood 3.2 mg/dL (0.60-1.20); Total Protein, Blood 8.5 g/dL (6.4-8.2)
[2019-08-10 21:03] LABS: Potassium, Blood 6.1 mmol/L (3.5-5.5)
== END | disposition home or self-care (01) ==
LOC: LAB 13:45 → LAB SHORT 13:45
PROVIDERS: Family Medicine
DX: R19.7 Diarrhea, unspecified (principal)
CPT/HCPCS: 80053; 85025

== ENCOUNTER 2019-08-19 09:25 | Emergency (ER) | payer OTHER ==
[~2019-08-19] VITALS: Ht 170.2 cm; Wt 45.4 kg
[~2019-08-19 09:25] MED LIST changes: +AFINITOR5 MG PO; +AMLODIPINE BES2.5 MG PO; +Augmentin 875-1 EACH PO; +Culturelle1 CAP PO; +Kaopectate240 MG; +LENVIMA PO; +LISI5 PO; +MIRALAX17 GM PO; +OXYC5 PO; +PANT40 PO; +Prilosec Otc20 MG PO
[2019-08-19 11:34] LABS: BASOPHILS ABSOLUTE AUTO 0.01 K/mm3 (0.00-0.23); BASOPHILS PERCENT AUTO 0 % (0-2); EOSINOPHILS ABSOLUTE AUTO 0.03 K/mm3 (0.00-0.68); EOSINOPHILS PERCENT AUTO 1 % (0-6); Hematocrit 39.8 % (37.0-53.0); Hemoglobin 12.9 g/dL (13.5-17.5); IMMATURE GRAN ABSOLUTE AUTO 0.02 K/mm3 (0.00-0.10); IMMATURE GRAN PERCENT AUTO 0 % (0-1); LYMPHOCYTES ABSOLUTE AUTO 0.74 K/mm3 (0.84-5.20); LYMPHOCYTES PERCENT AUTO 13 % (21-46); MONOCYTES PERCENT AUTO 9 % (4-13); Mean Corpuscular HGB 30.6 pg (26.0-34.0); Mean Corpuscular HGB Conc 32.4 g/dL (31.5-36.5); Mean Corpuscular Volume 95 fL (80-100); NEUTROPHILS ABSOLUTE AUTO 4.59 K/mm3 (1.96-9.15); NEUTROPHILS PERCENT AUTO 78 % (41-73); Platelet Count 114 K/mm3 (150-400); RDW Coefficient Variation 14.3 % (11.7-14.2); RDW Standard Deviation 48.5 fL (35.1-46.3); Red Blood Cell Count 4.21 M/mm3 (4.30-5.90); White Blood Cell Count 5.89 K/mm3 (4.00-11.30)
[2019-08-19 11:49] LABS: Alanine Aminotransfer (ALT/SGP 22 U/L (12-78); Albumin, Blood 3.5 g/dL (3.4-5.0); Albumin/Globulin Ratio 0.7 (0.8-1.8); Alk Phos 146 U/L (50-136); Anion Gap 12 mmol/L (6-16); Aspartate Aminotrans (AST/SGOT 41 U/L (12-37); Bilirubin, Total 0.3 mg/dL (0.1-1.0); Blood Urea Nitrogen 41 mg/dL (8-24); CO2, Blood 15 mmol/L (21-32); Calcium, Blood 9.6 mg/dL (8.5-10.1); Chloride, Blood 109 mmol/L (98-108); Creatinine, Blood 2.92 mg/dL (0.60-1.20); Glomerular Filtration Rate 22 (60-); Glucose, Blood 86 mg/dL (70-99); Potassium, Blood 4.6 mmol/L (3.5-5.5); Sodium, Blood 136 mmol/L (136-145); Total Protein, Blood 8.5 g/dL (6.4-8.2); Troponin I <0.015 ng/mL (0.000-0.040)
== END 2019-08-19 13:27 | disposition home or self-care (01) ==
LOC: ER 09:25
PROVIDERS: Emergency Medicine
DX: K22.10 Ulcer of esophagus without bleeding (principal); E86.0 Dehydration; N18.9 Chronic kidney disease, unspecified; F17.210 Nicotine dependence, cigarettes, uncomplicated; Z79.899 Other long term (current) drug therapy
CPT/HCPCS: 36415; 71045; 80053; 84484; 85025; 86850; 86900; 86901; 93005; 93010; 96360; 99285-25; J1642; J7030

== ENCOUNTER 2019-08-31 00:15 | Day surgery (SDC) | payer OTHER | END 2019-08-31 22:55 | disposition home or self-care (01) | LOC: WOUND 00:15 | DX: L97.828 Non-pressure chronic ulcer of other part of left lower leg with other specified severity (principal); I73.9 Peripheral vascular disease, unspecified; N18.3 Chronic kidney disease, stage 3 (moderate); F17.210 Nicotine dependence, cigarettes, uncomplicated; Z79.899 Other long term (current) drug therapy ==

== ENCOUNTER 2019-09-02 00:24 | Day surgery (SDC) | payer OTHER | END 2019-09-02 22:53 | disposition home or self-care (01) | LOC: WOUND 00:24 | DX: L97.828 Non-pressure chronic ulcer of other part of left lower leg with other specified severity (principal); I73.9 Peripheral vascular disease, unspecified ==

== ENCOUNTER 2019-09-08 08:46 | Day surgery (SDC) | payer OTHER | END 2019-09-08 23:02 | disposition home or self-care (01) | LOC: WOUND 08:46 | DX: L97.828 Non-pressure chronic ulcer of other part of left lower leg with other specified severity (principal); R60.0 Localized edema; I73.9 Peripheral vascular disease, unspecified; F17.210 Nicotine dependence, cigarettes, uncomplicated; I12.9 Hypertensive chronic kidney disease with stage 1 through stage 4 chronic kidney disease, or unspecified chronic kidney disease; N18.3 Chronic kidney disease, stage 3 (moderate) ==

== ENCOUNTER 2019-09-14 00:10 | Day surgery (SDC) | payer OTHER | END 2019-09-14 23:08 | disposition home or self-care (01) | LOC: WOUND 00:10 | DX: L97.828 Non-pressure chronic ulcer of other part of left lower leg with other specified severity (principal); I73.9 Peripheral vascular disease, unspecified; N18.3 Chronic kidney disease, stage 3 (moderate); F17.200 Nicotine dependence, unspecified, uncomplicated; Z79.899 Other long term (current) drug therapy ==

== ENCOUNTER 2019-09-21 00:27 | Day surgery (SDC) | payer OTHER | END 2019-09-21 22:39 | disposition home or self-care (01) | LOC: WOUND 00:27 | DX: L97.828 Non-pressure chronic ulcer of other part of left lower leg with other specified severity (principal); I73.9 Peripheral vascular disease, unspecified; N18.3 Chronic kidney disease, stage 3 (moderate); F17.200 Nicotine dependence, unspecified, uncomplicated ==

== ENCOUNTER 2019-09-22 08:34 | Day surgery (SDC) | payer OTHER ==
[2019-09-23] MEDS ORDERED: DOXYCYCLINE HY100 M1 PO (11:02)
[2019-09-23] MEDS ORDERED: SODBIC650 (11:02)
[2019-09-23] MEDS ORDERED: FURO40 (11:02)
[2019-09-23] MEDS ORDERED: OYSTER SHELL 51 EACH (11:03)
[2019-09-23] MEDS ORDERED: VITAMIN D350 MC2 PO (11:03)
[2019-09-23] MEDS ORDERED: OMEP20ER PO (11:03)
[2019-09-23] MEDS ORDERED: LISI5 (11:04)
== END 2019-09-22 23:03 | disposition home or self-care (01) ==
LOC: WOUND 08:34
DX: L97.828 Non-pressure chronic ulcer of other part of left lower leg with other specified severity (principal); I73.9 Peripheral vascular disease, unspecified

== ENCOUNTER 2019-09-23 10:33 | Day surgery (SDC) | payer OTHER ==
[~2019-09-23] VITALS: Ht 172.7 cm; Wt 50.8 kg
[2019-09-23] MEDS ORDERED: FURO40 (11:02)
[2019-09-23] MEDS ORDERED: DOXYCYCLINE HY100 M1 PO (11:02)
[2019-09-23] MEDS ORDERED: SODBIC650 (11:02)
[2019-09-23] MEDS ORDERED: OMEP20ER PO (11:03)
[2019-09-23] MEDS ORDERED: OYSTER SHELL 51 EACH (11:03)
[2019-09-23] MEDS ORDERED: VITAMIN D350 MC2 PO (11:03)
[2019-09-23] MEDS ORDERED: LISI5 (11:04)
--- NOTE | 2019-09-23 11:08 | NUR ---
09/23/19 Lori Chiu CALL LIGHT WITHIN REACH.
== END 2019-09-23 12:12 | disposition home or self-care (01) ==
LOC: ORSCSDS 10:33
PROVIDERS: Internal Medicine Gastroenterology
PROC: 0DB58ZX Excision of Esophagus, Via Natural or Artificial Opening Endoscopic, Diagnostic (ICD-10-PCS; principal; 2019-09-23 15:00)
DX: K92.0 Hematemesis (principal); K22.70 Barrett's esophagus without dysplasia; Z87.11 Personal history of peptic ulcer disease; R63.4 Abnormal weight loss; K21.9 Gastro-esophageal reflux disease without esophagitis; I10 Essential (primary) hypertension; N18.3 Chronic kidney disease, stage 3 (moderate); K44.9 Diaphragmatic hernia without obstruction or gangrene; F17.210 Nicotine dependence, cigarettes, uncomplicated; Z79.899 Other long term (current) drug therapy
CPT/HCPCS: 88305; J2704; J7120

== ENCOUNTER 2019-09-28 00:22 | Day surgery (SDC) | payer OTHER ==
[~2019-09-28 00:22] MED LIST changes: +DOXYCYCLINE HY100 M1 PO; +FURO40; +LISI5; +OMEP20ER PO; +OYSTER SHELL 51 EACH; +SODBIC650; +VITAMIN D350 MC2 PO
== END 2019-09-28 23:16 | disposition home or self-care (01) ==
LOC: WOUND 00:22
DX: L97.828 Non-pressure chronic ulcer of other part of left lower leg with other specified severity (principal); I73.9 Peripheral vascular disease, unspecified; N18.3 Chronic kidney disease, stage 3 (moderate); F17.200 Nicotine dependence, unspecified, uncomplicated

== ENCOUNTER 2019-10-12 00:09 | Day surgery (SDC) | payer OTHER | END 2019-10-12 22:42 | disposition home or self-care (01) | LOC: WOUND 00:09 | DX: L97.828 Non-pressure chronic ulcer of other part of left lower leg with other specified severity (principal); I73.9 Peripheral vascular disease, unspecified; N18.3 Chronic kidney disease, stage 3 (moderate); F17.200 Nicotine dependence, unspecified, uncomplicated; Z79.899 Other long term (current) drug therapy ==

== ENCOUNTER → 2020-01-20 | Outpatient (CLI) | payer OTHER | LOC: LAB SHORT 13:15 → LAB 13:15 | DX: L08.9 Local infection of the skin and subcutaneous tissue, unspecified (principal); D48.5 Neoplasm of uncertain behavior of skin; D04.39 Carcinoma in situ of skin of other parts of face | CPT/HCPCS: 87070; 87205 ==